=== PATIENT | male | born 1960 | race Caucasian/White ===

== ENCOUNTER 2016-04-11 15:49 | Outpatient (CLI) | payer OTHER | END 2016-04-11 15:50 | disposition home or self-care (01) | DX: E78.5 Hyperlipidemia, unspecified (principal); E11.9 Type 2 diabetes mellitus without complications; C79.31 Secondary malignant neoplasm of brain ==

== ENCOUNTER 2016-07-11 15:57 | Outpatient (CLI) | payer OTHER | END 2016-07-11 15:58 | disposition home or self-care (01) | DX: N18.9 Chronic kidney disease, unspecified (principal); Z12.5 Encounter for screening for malignant neoplasm of prostate; E11.9 Type 2 diabetes mellitus without complications ==

== ENCOUNTER 2016-10-31 09:49 | Outpatient (CLI) | payer OTHER ==
[2016-10-31 10:32] LABS: CREATININE 1.5 mg/dL (0.6-1.2)
== END 2016-10-31 09:50 | disposition home or self-care (01) ==
LOC: LAB 09:49
PROVIDERS: ATTEND Specialist
DX: C79.31 Secondary malignant neoplasm of brain (principal)
CPT/HCPCS: 82565; 84520

== ENCOUNTER 2017-01-31 08:00 | Outpatient (CLI) | payer OTHER ==
[2017-02-02 22:38] LABS: TOTAL VOLUME 24HRS,URINE 2000 mL
[2017-02-03 18:50] LABS: TOTAL PROTEIN 24HR,URINE 3140 mg/24hr (40-150); TOTAL PROTEIN,URINE TIMED 157 mg/dL
== END 2017-02-02 08:01 | disposition home or self-care (01) ==
LOC: LAB.WCP 08:00
PROVIDERS: ATTEND Internal Medicine Hematology & Oncology
DX: C64.2 Malignant neoplasm of left kidney, except renal pelvis (principal)
CPT/HCPCS: 84156

== ENCOUNTER 2017-02-24 07:46 | Outpatient (CLI) | payer OTHER ==
[2017-02-24 13:16] LABS: ALBUMIN 3.7 g/dL (3.2-5.5); ALBUMIN/GLOBULIN RATIO 1.4 (1.0-2.2); ALKALINE PHOSPHATASE 55 IU/L (42-121); ALT ALANINE AMINOTRANSFERASE 17 IU/L (10-60); AST ASPARTATE AMINOTRANSFERASE 21 IU/L (10-42); BILIRUBIN,TOTAL 0.8 mg/dL (0.2-1.0); BUN - BLOOD UREA NITROGEN 20 mg/dL (6-20); CALCIUM 8.7 mg/dL (8.5-10.3); CARBON DIOXIDE - CO2 24 mmol/L (21-32); CHLORIDE 107 mmol/L (101-111); CHOL/HDL RATIO 5.3 (<5.0); CHOLESTEROL 158 mg/dL; CREATININE 1.2 mg/dL (0.6-1.2); GFR - MDRD 62 (>89); GLUCOSE 170 mg/dL (70-100); HB2 TOTAL 14.6 g/dL; HDL CHOLESTEROL 30 mg/dL; HEMOGLOBIN A1C 0.73 g/dL; HEMOGLOBIN A1C % 6.7 % (4.6-6.2); LDL CHOLESTEROL,CALCULATED 88 mg/dL; LDL/HDL RATIO 2.9 (<3.6); SODIUM 136 mmol/L (135-145); TOTAL PROTEIN 6.3 g/dL (6.7-8.2); VLDL CHOLESTEROL 40 mg/dL
== END 2017-02-24 07:47 | disposition home or self-care (01) ==
LOC: LAB.WCP 07:46
PROVIDERS: ATTEND Physician Assistant Medical
DX: E11.9 Type 2 diabetes mellitus without complications (principal)
CPT/HCPCS: 36415; 80053; 80061; 83036

== ENCOUNTER 2017-07-19 09:39 | Outpatient (CLI) | payer OTHER ==
--- NOTE | 2017-07-19 11:13 | XRAY Report ---
AC JOINTS WITH AND WITHOUT WEIGHTS: 07/19/2017 CLINICAL INDICATION: Strain, pain. FINDINGS: Frontal views of the acromioclavicular joints were obtained with and without weights. There is no evidence of AC separation on either side. Minimal degenerative changes are present. No foreign body is seen in the soft tissues. No clavicular fracture is appreciated. IMPRESSION: NO EVIDENCE OF SHOULDER SEPARATION. TD: 07/19/2017 11:04
== END 2017-07-19 09:40 | disposition home or self-care (01) ==
LOC: DI 09:39
PROVIDERS: ATTEND Physician Assistant Medical
DX: S46.911A Strain of unspecified muscle, fascia and tendon at shoulder and upper arm level, right arm, initial encounter (principal)
CPT/HCPCS: 73050

== ENCOUNTER 2017-07-26 08:55 | Outpatient (CLI) | payer OTHER ==
[2017-07-26 13:04] LABS: HB2 TOTAL 14.8 g/dL; HEMOGLOBIN A1C 0.87 g/dL; HEMOGLOBIN A1C % 7.5 % (4.6-6.2)
[2017-07-26 13:24] LABS: CREATININE 1.6 mg/dL (0.6-1.2)
== END 2017-07-26 08:56 ==
LOC: LAB.WCP 08:55
PROVIDERS: ATTEND Physician Assistant Medical
DX: E11.22 Type 2 diabetes mellitus with diabetic chronic kidney disease (principal); N18.9 Chronic kidney disease, unspecified
CPT/HCPCS: 36415; 80048; 83036

== ENCOUNTER 2017-09-21 10:41 | Outpatient (CLI) | payer OTHER ==
[2017-09-21 11:11] LABS: CREATININE,URINE 29.4 mg/dL; PROTEIN/CREATININE RATIO,URINE 1.2 (<=0.2)
[2017-09-21 11:13] LABS: CALCIUM 8.5 mg/dL (8.5-10.3); CREATININE 1.5 mg/dL (0.6-1.2)
== END 2017-09-21 10:42 | disposition home or self-care (01) ==
LOC: LAB 10:41
PROVIDERS: ATTEND Internal Medicine Nephrology
DX: N05.9 Unspecified nephritic syndrome with unspecified morphologic changes (principal); R80.9 Proteinuria, unspecified
CPT/HCPCS: 36415; 80048; 82570; 84156

== ENCOUNTER 2017-11-07 08:00 | Outpatient (CLI) | payer OTHER ==
[2017-11-07 13:15] LABS: BASOPHILS % (AUTO) 0.9 %; EOSINOPHILS # (AUTO) 0.1 10^3/uL (0.0-0.7); HGB - HEMOGLOBIN 12.4 g/dL (14.0-18.0); LYMPHOCYTES # (AUTO) 0.9 10^3/uL (1.5-3.5); MEAN CORPUSCULAR HEMOGLOBIN 29.5 pg (27.0-31.0); MEAN CORPUSCULAR HGB CONC 34.8 g/dL (32.0-36.0); MEAN CORPUSCULAR VOLUME 84.8 fL (80.0-94.0); MEAN PLATELET VOLUME 8.8 fL (7.4-11.4); MONOCYTES # (AUTO) 0.5 10^3/uL (0.0-1.0); MONOCYTES % (AUTO) 9.3 %; NEUTROPHILS # (AUTO) 3.4 10^3/uL (1.5-6.6); NEUTROPHILS % (AUTO) 68.8 %; PLT - PLATELET COUNT 162 10^3/uL (130-450); RED BLOOD COUNT 4.22 10^6/uL (4.70-6.10); RED CELL DISTRIBUTION WIDTH 16.9 % (12.0-15.0); WHITE BLOOD COUNT 4.9 x10^3/uL (4.8-10.8)
[2017-11-07 13:38] LABS: ALBUMIN 3.8 g/dL (3.2-5.5); ALBUMIN/GLOBULIN RATIO 1.4 (1.0-2.2); ALKALINE PHOSPHATASE 51 IU/L (42-121); ALT ALANINE AMINOTRANSFERASE 17 IU/L (10-60); AST ASPARTATE AMINOTRANSFERASE 20 IU/L (10-42); BUN - BLOOD UREA NITROGEN 20 mg/dL (6-20); CARBON DIOXIDE - CO2 26 mmol/L (21-32); CHLORIDE 106 mmol/L (101-111); CHOL/HDL RATIO 5.6 (<5.0); CHOLESTEROL 151 mg/dL; CREATININE 1.4 mg/dL (0.6-1.2); GFR - MDRD 52 (>89); GLUCOSE 222 mg/dL (70-100); HDL CHOLESTEROL 27 mg/dL; LDL CHOLESTEROL,CALCULATED 81 mg/dL; SODIUM 139 mmol/L (135-145); TOTAL PROTEIN 6.5 g/dL (6.7-8.2); VLDL CHOLESTEROL 43 mg/dL
[2017-11-07 13:45] LABS: HEMOGLOBIN A1C 0.62 g/dL; HEMOGLOBIN A1C % 6.5 % (4.6-6.2)
[2017-11-07 13:46] LABS: THYROID STIMULATING HORMONE 1.1 uIU/mL (0.34-5.60)
[2017-11-07 13:52] LABS: FERRITIN 103.7 ng/mL (23.9-336.2)
== END 2017-11-07 08:01 | disposition home or self-care (01) ==
LOC: LAB.WCP 08:00
PROVIDERS: ATTEND Physician Assistant Medical
DX: E78.5 Hyperlipidemia, unspecified (principal); R53.83 Other fatigue; E11.9 Type 2 diabetes mellitus without complications; Z12.5 Encounter for screening for malignant neoplasm of prostate
CPT/HCPCS: 36415; 80053; 80061; 82306; 82607; 82728; 83036; 83721; 84153; 84443; 85025

== ENCOUNTER 2018-03-01 14:42 | Outpatient (CLI) | payer OTHER ==
[2018-03-01 19:18] LABS: CALCIUM 9.3 mg/dL (8.5-10.3); CREATININE 1.7 mg/dL (0.6-1.2)
[2018-03-01 19:30] LABS: HB2 TOTAL 14.6 g/dL; HEMOGLOBIN A1C 0.99 g/dL; HEMOGLOBIN A1C % 8.4 % (4.6-6.2)
== END 2018-03-01 23:59 | disposition home or self-care (01) ==
LOC: LAB.WCP 14:42
PROVIDERS: ATTEND Physician Assistant Medical
DX: N52.9 Male erectile dysfunction, unspecified (principal); E11.9 Type 2 diabetes mellitus without complications
CPT/HCPCS: 36415; 80048; 81599; 83036; 84402; 84403

== ENCOUNTER 2018-04-19 08:10 | Outpatient (CLI) | payer OTHER ==
[2018-04-19 14:31] LABS: CREATININE 1.7 mg/dL (0.6-1.2)
== END 2018-04-19 08:11 | disposition home or self-care (01) ==
LOC: LAB.WCP 08:10
PROVIDERS: ATTEND Specialist
DX: C79.31 Secondary malignant neoplasm of brain (principal)
CPT/HCPCS: 36415; 82565; 84520

== ENCOUNTER 2018-07-17 15:08 | Outpatient (CLI) | payer OTHER | END 2018-07-17 15:09 | disposition home or self-care (01) | LOC: SC 15:08 | PROVIDERS: ATTEND Nurse Practitioner Family | DX: G47.33 Obstructive sleep apnea (adult) (pediatric) (principal); E66.9 Obesity, unspecified; Z68.38 Body mass index [BMI] 38.0-38.9, adult | CPT/HCPCS: 99204; 99212 ==

== ENCOUNTER 2018-07-24 13:21 | Outpatient (CLI) | payer OTHER ==
[2018-07-24 19:06] LABS: CREATININE 1.6 mg/dL (0.6-1.2)
== END 2018-07-24 13:22 | disposition home or self-care (01) ==
LOC: LAB.WCP 13:21
PROVIDERS: ATTEND Specialist
DX: C79.31 Secondary malignant neoplasm of brain (principal)
CPT/HCPCS: 36415; 82565; 84520

== ENCOUNTER 2018-08-29 08:00 | Outpatient (CLI) | payer OTHER | END 2018-08-29 08:01 | disposition home or self-care (01) | LOC: LAB.WCP 08:00 | PROVIDERS: ATTEND Internal Medicine Cardiovascular Disease | DX: I48.91 Unspecified atrial fibrillation (principal) | CPT/HCPCS: 36415; 84443 ==

== ENCOUNTER 2018-10-24 09:12 | Outpatient (CLI) | payer OTHER ==
[2018-10-24 10:32] VITALS: BP 130/80
--- NOTE | 2018-10-24 10:32 | SLEEP CARE CONSULTATION ---
Information from patient questionnaire entered by Shanika Ryan. I have reviewed and concur with the information entered by Shanika Ryan. This document represents the service I personally performed and the decisions made by me, Elif Gordon, RN, MSN, [employer]. History of Present Illness Previous diagnosis: Very Severe, Obstructive Sleep Apnea-Hypopnea Syndrome AHI: 60 Reason for CPAP/BiPAP follow up: three month Equipment type: CPAP Equipment obtained from: [facility] Mask style: Nasal Mask brand: Resmed Backup mask available: Yes Last cushion change: 2 months ago HPI additional information: Review of past visit notes is that the new pressure is comfortable and allowing him to use CPAP nightly. Supplies were updated. CPAP Compliance Data - Data Reviewed with Patient Average duration of nightly device use: 5.5 Compliance rate %: 77 (30 days) Current pressure setting (cmH2O): 11 Average residual AHI: 1.6 Average large leak: 0.2 liters a minute Subjective Missed days of use due to: reports: travel (unexpected travel) Patient concerns: reports: air blowing in eyes (occasionally), other (short nights of use is patient waking to use restroom in middle of night and then unable to go back to sleep due to things on his mind, generally work. ). den ies: aerophagia, mask discomfort, mask leak noise, condensation in mask/hose, nasal congestion, dry mouth, nose, throat, epistaxis Observed to snore while using device: No Current pressure setting perceived as: comfortable On therapy, patient: reports: sleeping better, awakening more refreshed, being more awake and alert during the day, more rested overall. denies: drowsiness while driving Initial [place] Sleepiness Scale score: 5 Current [place] Sleepiness Scale score: 3 Allergies and Home Medications Known drug allergies: Yes (lisinopril) Home medication list reviewed: Yes Allergy and home medication list: Medication List Medication Name (generic/name brand) Strength & Dosage Lovastatin 20mg tab one daily Glipizide 5mg tab one twice daily Carvedilol 25mg tab one twice daily Zolpidem Tartrate 10mg tab one daily at bedtime as needed Hydrochlorothiazide 25mg tab one every morning Losartan Potassium 25mg tab one daily Lantus Solostar 100 unit/ml SQ Solution Inject 70 units daily as needed Sildenafil Citrate 50mg tab as directed Humalog Kwikpen 100 unit/ml SQ Solution As directed on SS as needed Omeprazole DR 20mg cap one daily Allergy List Lisinopril Review of Systems Review of systems same as previous: Yes Physical Exam Blood Pressure: 130/80 Cuff size: long Heart Rate: 66 O2 Saturation: 98 Height: 5 ft 11.75 in Weight (kg): 129.455 kg Body Mass Index: 38.9 BMI Classification: Class 2 Impression and Plan 1. Obstructive Sleep Apnea-Hypopnea Syndrome, very severe, with good treatment compliance and good apnea control. On CPAP therapy, the patient has better sleep quality and is more rested overall. The new pressure and updated supplies have improved CPAP comfort and use. However, he has intermittent insomnia as addressed below affecting compliance. Patient also reminded to change mask cushion regularly to maintain fit and comfort of mask. Patient's apnea severity and rationale for treatment to reduce apnea, improve sleep quality and reduce cardiovascular and cerebrovascular events was reviewed. I also reviewed the benefit of consistent device use of CPAP for hypertension, diabetes, gastric reflux. He has noted benefit to his blood pressure and gerd. 2. Insomnia, waking in middle of night with inability to fall back to sleep about 1 -2 times a week. This occurs after using the restroom and then starts thinking about work needs. He will take off mask and toss and turn until he feels he is disturbing spouse and then leave room to read. Thus he is advised instead to leave room sooner to reduce frustration of trying to go to sleep. He is to then write out concerns that are keeping him awake as a release and then read something relaxing until sleepy. Upon to return to bed if unable to sleep again, he is to repeat process as often as needed to associate bed with sleep. AASM How to Sleep Better given and reviewed. He is also advised to use CPAP while in bed in the event he may fall back to sleep. * Continue CPAP pressure at 11 cmH2O * Implement methods to reduce insomnia. * Notify me if snoring with mask or feeling that the pressure is too much or too little * Attempt to lose weight * Return for follow up in 6 months , or sooner if concerns arise I spent 100% of this 30 minute visit face to face with the patient with greater than 50% of this was spent time counseling the patient and coordination of care.
== END 2018-10-24 09:13 | disposition home or self-care (01) ==
LOC: SC 09:12
PROVIDERS: ATTEND Nurse Practitioner Family
DX: G47.33 Obstructive sleep apnea (adult) (pediatric) (principal); G47.00 Insomnia, unspecified
CPT/HCPCS: 99212; 99214

== ENCOUNTER 2018-12-26 07:44 | Outpatient (CLI) | payer OTHER ==
[2018-12-26 12:31] LABS: BASOPHILS # (AUTO) 0.1 10^3/uL (0.0-0.1); BASOPHILS % (AUTO) 0.9 %; EOSINOPHILS # (AUTO) 0.1 10^3/uL (0.0-0.7); EOSINOPHILS % (AUTO) 2.6 %; HGB - HEMOGLOBIN 14.2 g/dL (14.0-18.0); LYMPHOCYTES # (AUTO) 1.1 10^3/uL (1.5-3.5); LYMPHOCYTES % (AUTO) 20.7 %; MEAN CORPUSCULAR HEMOGLOBIN 28.6 pg (27.0-31.0); MEAN CORPUSCULAR HGB CONC 32.7 g/dL (32.0-36.0); MEAN CORPUSCULAR VOLUME 87.5 fL (80.0-94.0); MEAN PLATELET VOLUME 11.3 fL (7.4-11.4); MONOCYTES # (AUTO) 0.5 10^3/uL (0.0-1.0); NEUTROPHILS # (AUTO) 3.5 10^3/uL (1.5-6.6); NEUTROPHILS % (AUTO) 65.2 %; PLT - PLATELET COUNT 148 10^3/uL (130-450); RED BLOOD COUNT 4.96 10^6/uL (4.70-6.10); RED CELL DISTRIBUTION WIDTH 13.7 % (12.0-15.0); WHITE BLOOD COUNT 5.3 x10^3/uL (4.8-10.8)
[2018-12-26 13:09] LABS: ALBUMIN 4.2 g/dL (3.2-5.5); ALBUMIN/GLOBULIN RATIO 1.7 (1.0-2.2); BILIRUBIN,TOTAL 0.9 mg/dL (0.2-1.0); CALCIUM 9.1 mg/dL (8.5-10.3); CREATININE 1.6 mg/dL (0.6-1.2); TOTAL PROTEIN 6.7 g/dL (6.7-8.2)
== END 2018-12-26 23:59 | disposition home or self-care (01) ==
LOC: LAB.WCP 07:44
PROVIDERS: ATTEND Physician Assistant Medical
DX: I48.91 Unspecified atrial fibrillation (principal)
CPT/HCPCS: 36415; 80053; 85025

== ENCOUNTER 2019-04-19 07:45 | Outpatient (CLI) | payer OTHER ==
[2019-04-19 13:44] LABS: BUN - BLOOD UREA NITROGEN 35 mg/dL (6-20); CALCIUM 9.3 mg/dL (8.5-10.3); CARBON DIOXIDE - CO2 27 mmol/L (21-32); CHLORIDE 101 mmol/L (101-111); CHOL/HDL RATIO 5.7 (<5.0); CHOLESTEROL 187 mg/dL; CREATININE 1.5 mg/dL (0.6-1.2); GFR - MDRD 48 (>89); GLUCOSE 270 mg/dL (70-100); HDL CHOLESTEROL 33 mg/dL; LDL CHOLESTEROL,CALCULATED 111 mg/dL; LDL/HDL RATIO 3.4 (<3.6); SODIUM 136 mmol/L (135-145); VLDL CHOLESTEROL 43 mg/dL
[2019-04-19 13:54] LABS: HB2 TOTAL 15.3 g/dL; HEMOGLOBIN A1C 0.89 g/dL; HEMOGLOBIN A1C % 7.5 % (4.6-6.2)
== END 2019-04-19 23:59 | disposition home or self-care (01) ==
LOC: LAB.WCP 07:45
PROVIDERS: ATTEND Physician Assistant Medical
DX: E11.9 Type 2 diabetes mellitus without complications (principal)
CPT/HCPCS: 36415; 80048; 80061; 83036; 83721

== ENCOUNTER 2019-07-01 16:51 | Outpatient (CLI) | payer OTHER ==
--- NOTE | 2019-07-01 15:32 | SLEEP CARE CONSULTATION ---
Information from patient questionnaire entered by Rosie Laura. I have reviewed and concur with the information entered by Rosie Laura. This document represents the service I personally performed and the decisions made by me, Elif Gordon, RN, MSN, ENTERTAINMENT MANAGER. History of Present Illness Service Date and Time: 07/01/2019 1500 Previous diagnosis: Very Severe, Obstructive Sleep Apnea-Hypopnea Syndrome AHI: 60.4 Reason for follow up: six month Equipment type: CPAP Equipment obtained from: [facility] (nothing for about 6 months /) Mask style: Nasal Backup mask available: Yes (nasal pillows ) Last cushion change: not since set up. uses So Clean device Type of Sleep Study: Polysomnography CPAP Compliance Data - Data Reviewed with Patient Average duration of nightly device use: 5h 44m Compliance rate %: 86 Current pressure setting (cmH2O): 11 Average residual AHI: 0.7 Average large leak: minimal Subjective Patient concerns: denies: aerophagia, mask discomfort, air blowing in eyes, mask leak noise, condensation in mask/hose, nasal congestion, dry mouth, nose, throat, epistaxis Observed to snore while using device: No Current pressure setting perceived as: comfortable On therapy, patient: reports: sleeping better, awakening more refreshed, being more awake and alert during the day, more rested overall, other. denies: drowsiness while driving Initial [place] Sleepiness Scale score: 5 Allergies and Home Medications Home medication list reviewed: Yes (added eliquist for atrial fibrillation) Review of Systems Review of systems same as previous: No (diagnosed with atrial fibrillation) Physical Exam Height: 5 ft 11 in Weight: 285 lb (home weight - walking 4 times a week) Body Mass Index: 39.7 BMI Classification: Obese Impression and Plan 1. Obstructive Sleep Apnea-Hypopnea Syndrome, very severe, with good treatment compliance and good apnea control. On CPAP therapy, the patient has better sleep quality and is more rested overall. Patient very pleased with benefit of his CPAP treatment. Since patient is using a CPAP cleaning device, he was advised to Check the FDA recent warning on CPAP boom master to see if he needs to address. Since he has not obtained supplies since our last visit 6 months ago, I advised patient to contact his supply company through [employer] at the appropriate number. If unable to get supplies, he is to contact this office. I reviewed verbally the usual supply replacement schedule. Patient has been trying to lose weight. Currently patients BMI is 39.7 obesity class . Obesity increases the risk of apnea, CPAP pressure requirements and overall health risks especially cardiovascular and diabetes. Thus patient is advised to continue to lose weight. Weight loss can be done with reducing portion size, reducing refined foods and balancing content with vegetables, fruit and protein. In addition tracking food intake will allow awareness of how to modify diet to achieve weight loss goals. Also eating more slowly will allow more awareness of food intake and enjoyment of food while assisting patient to modify intake at each meal. A diet consultation can be helpful in achieving optimal weight loss goals. Patients spouse is a core carrier. Symptoms to report for additional pressure adjustment discussed if loses significant weight. Patient is comfortable with current pressure and does not want to change to an autoCPAP at this time to adjust for future weight loss. Patient's apnea severity and rationale for treatment to reduce apnea, improve sleep quality and reduce cardiovascular and cerebrovascular events was reviewed. I also reviewed the benefit of consistent device use of CPAP for his arrhythmia. Since he is averaging about 5 hours and 44 minutes of sleep nightly, I reviewed that most people need about 7-9 hours of sleep. However, some people only require about 6 hours. It seems he is well rested with about 6 hours or a little more if can sleep longer. I cautioned him not to get less than 5 hours of sleep consistently as insufficient sleep can increase health risks. * Continue CPAP pressure at 11 cmH2O * Notify me if snoring with mask or feeling that the pressure is too much or too little * Attempt to lose weight * Call [facility] for supplies * Call this office if any problems using CPAP * Return for follow up in 1 year , or sooner if concerns arise Visit Type: Telehealth Phone (to minimize risk of Covid 19 exposure) Patient Location: Home Location of Provider: Home Patient agrees and consents to this telehealth visit type: Yes Patient agrees to have their insurance billed: Yes Time Spent with Patient (minutes): 19 Provider Statement: I spent 100% of the Telehealth Phone Call with the patient with greater than 50% spent counseling the patient and coordination of care.
== END 2019-07-01 16:52 | disposition home or self-care (01) ==
LOC: SC 16:51
PROVIDERS: ATTEND Nurse Practitioner Family
DX: G47.33 Obstructive sleep apnea (adult) (pediatric) (principal); E66.9 Obesity, unspecified; Z68.39 Body mass index [BMI] 39.0-39.9, adult

== ENCOUNTER 2019-07-17 09:42 | Outpatient (CLI) | payer OTHER ==
[2019-07-17 13:45] LABS: CREATININE,URINE 128.9 mg/dL; MICROALBUM/CREATININE RATIO,UR 244.4 ug/mg (<30.0); MICROALBUMIN,URINE 31.5 mg/dL (0-300.0)
[2019-07-17 14:03] LABS: HB2 TOTAL 14.6 g/dL; HEMOGLOBIN A1C 0.78 g/dL
[2019-07-17 14:04] LABS: ALBUMIN 4.3 g/dL (3.2-5.5); ALBUMIN/GLOBULIN RATIO 1.6 (1.0-2.2); ALKALINE PHOSPHATASE 54 IU/L (42-121); ALT ALANINE AMINOTRANSFERASE 26 IU/L (10-60); AST ASPARTATE AMINOTRANSFERASE 24 IU/L (10-42); BILIRUBIN,TOTAL 1.4 mg/dL (0.2-1.0); BUN - BLOOD UREA NITROGEN 32 mg/dL (6-20); CARBON DIOXIDE - CO2 24 mmol/L (21-32); CHLORIDE 105 mmol/L (101-111); CHOL/HDL RATIO 4.8 (<5.0); CHOLESTEROL 162 mg/dL; CREATININE 1.5 mg/dL (0.6-1.2); GLUCOSE 124 mg/dL (70-100); HDL CHOLESTEROL 34 mg/dL; LDL CHOLESTEROL,CALCULATED 97 mg/dL; LDL/HDL RATIO 2.9 (<3.6); SODIUM 138 mmol/L (135-145); VLDL CHOLESTEROL 31 mg/dL
== END 2019-07-17 23:59 | disposition home or self-care (01) ==
LOC: LAB.WCP 09:42
PROVIDERS: ATTEND Physician Assistant Medical
DX: E11.9 Type 2 diabetes mellitus without complications (principal); Z12.5 Encounter for screening for malignant neoplasm of prostate; C79.31 Secondary malignant neoplasm of brain
CPT/HCPCS: 36415; 80053; 80061; 82043; 82570; 83036; 83721; 84153; 84443

== ENCOUNTER 2020-02-11 08:17 | Outpatient (CLI) | payer OTHER | END 2020-02-11 08:18 | disposition home or self-care (01) | LOC: LAB.N 08:17 | DX: C79.31 Secondary malignant neoplasm of brain (principal) | CPT/HCPCS: 36415; 80048; 83036; 84520 ==

== ENCOUNTER 2020-08-11 09:33 | Outpatient (CLI) | payer OTHER ==
--- NOTE | 2020-08-11 09:52 | SLEEP CARE CONSULTATION ---
Information from patient questionnaire entered by Shanika Ryan. I have reviewed and concur with the information entered by Shanika Ryan. This document represents the service I personally performed and the decisions made by , Kellen Dominguez ARNP. History of Present Illness Service Date and Time: 08/11/2020 0933 Previous diagnosis: Very Severe, Obstructive Sleep Apnea-Hypopnea Syndrome AHI: 60.4 (in 2015) Reason for follow up: annual (last seen 06/2019) Equipment type: CPAP Equipment obtained from: [facility] (having difficulty with getting supplies, ?paying full alba) Mask style: Nasal (over the noase) Backup mask available: Yes (old mask) Last cushion change: last year Prior sleep studies: Yes Year and Where: 2015 - [facility]; 1999 - [facility] Type of Sleep Study: Polysomnography HPI additional information: MARIANNE CAVAZOS was diagnosed to have very severe, AHI 60.4, obstructive sleep apnea-hypopnea syndrome and returns via Telehealth visit today for CPAP therapy annual follow-up. CPAP Compliance Data - Data Reviewed with Patient Average duration of nightly device use: 5 hr 55 min Compliance rate %: 94 (180 days) Current pressure setting (cmH2O): 11 Humidity settin Average residual AHI: 1.0 Subjective Patient concerns: denies: aerophagia, mask discomfort, air blowing in eyes, mask leak noise, condensation in mask/hose, nasal congestion, dry mouth, nose, throat, epistaxis, other Observed to snore while using device: No Current pressure setting perceived as: comfortable On therapy, patient: reports: sleeping better, awakening more refreshed, being more awake and alert during the day, more rested overall. denies: drowsiness while driving Initial [place] Sleepiness Scale score: 5 (in 2014) Current [place] Sleepiness Scale score: 4 Allergies and Home Medications Home medication list reviewed: Yes (Eliquis, carvedilol) Review of Systems Review of systems same as previous: No (Atrial fibrillation) Physical Exam Vital signs obtained and entered by: Telehealth vist to reduce exposure during covid pandemic Height: 5 ft 11 in Impression and Plan 1. Obstructive Sleep Apnea-Hypopnea Syndrome, very severe, with good treatment compliance and good apnea control. On CPAP therapy, the patient has better sleep quality and is more rested overall. Patient is having difficulty getting supplies from [facility]. He states they told him he does not qualify for automatic supplies due to his insurance. He is in need of a new water chamber and gasket and has not been able to change his mask in the last year. I will make a prescription to update his supplies and added note about the water chamber. He states he thinks they are charging him full alba for supplies. He states his weight is stable around 292 pounds. 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 He is also watching what he eats but has not been able to lose weight. I encouraged him to continue to try to lose weight and consult with his on the best way to do this with his diet. He voiced understanding and agreement with this plan of care. Patient's apnea severity and rationale for treatment to reduce apnea, improve sleep quality and reduce cardiovascular and cerebrovascular events was reviewed. I also reviewed the benefit of consistent device use of CPAP for arrhythmias. * Continue auto CPAP pressure at 11 cmH2O * Notify me if snoring with mask or feeling that the pressure is too much or too little * Continue to try to lose weight * Call this office if any problems using CPAP * Return for follow up in 1 year, or sooner if concerns arise Counseling Topics: Spare mask, Weight loss health impact Visit Type: Telehealth Video Video Type: VSee Patient Location: Work Location of Provider: Office Patient agrees and consents to this telehealth visit type: Yes Provider Statement: I spent 100% of the Telehealth Video Call with the patient with greater than 50% spent counseling the patient and coordination of care.
== END 2020-08-11 09:34 | disposition home or self-care (01) ==
LOC: SC 09:33
PROVIDERS: ATTEND Nurse Practitioner Family
DX: G47.33 Obstructive sleep apnea (adult) (pediatric) (principal)

== ENCOUNTER 2020-09-01 08:00 | Outpatient (CLI) | payer OTHER ==
[2020-09-01 18:25] LABS: CALCIUM 9.2 mg/dL (8.5-10.3); CREATININE 1.6 mg/dL (0.6-1.2); POTASSIUM 3.7 mmol/L (3.5-5.0)
[2020-09-01 20:57] LABS: ESTIMATED AVERAGE GLUCOSE 206 mg/dL (70-100); HEMOGLOBIN A1c% 8.8 % (4.27-6.07)
== END 2020-09-01 23:59 | disposition home or self-care (01) ==
LOC: LAB.WCP 08:00
PROVIDERS: ATTEND Physician Assistant Medical
DX: E11.9 Type 2 diabetes mellitus without complications (principal)
CPT/HCPCS: 36415; 80048; 83036

== ENCOUNTER 2020-12-01 08:00 | Outpatient (CLI) | payer OTHER ==
[2020-12-01 12:24] LABS: ALBUMIN/GLOBULIN RATIO 1.4 (1.0-2.2); ALKALINE PHOSPHATASE 59 IU/L (42-121); ALT ALANINE AMINOTRANSFERASE 25 IU/L (10-60); AST ASPARTATE AMINOTRANSFERASE 19 IU/L (10-42); BILIRUBIN,TOTAL 1.1 mg/dL (0.2-1.0); BUN - BLOOD UREA NITROGEN 35 mg/dL (6-20); CALCIUM 9.2 mg/dL (8.5-10.3); CARBON DIOXIDE - CO2 26 mmol/L (21-32); CHLORIDE 101 mmol/L (101-111); CHOL/HDL RATIO 5.7 (<5.0); CHOLESTEROL 172 mg/dL; CREATININE 1.5 mg/dL (0.6-1.2); GFR - MDRD 48 (>89); GLUCOSE 186 mg/dL (70-100); HDL CHOLESTEROL 30 mg/dL; LDL CHOLESTEROL,CALCULATED 106 mg/dL; LDL/HDL RATIO 3.5 (<3.6); POTASSIUM 3.7 mmol/L (3.5-5.0); SODIUM 137 mmol/L (135-145); TOTAL PROTEIN 6.8 g/dL (6.7-8.2); TRIGLYCERIDES 180 mg/dL; VLDL CHOLESTEROL 36 mg/dL
[2020-12-01 12:30] LABS: ESTIMATED AVERAGE GLUCOSE 183 mg/dL (70-100)
[2020-12-01 12:34] LABS: THYROID STIMULATING HORMONE 0.91 uIU/mL (0.34-5.60)
[2020-12-01 12:35] LABS: CREATININE,URINE 67.9 mg/dL; MICROALBUM/CREATININE RATIO,UR 368.2 ug/mg (<30.0)
== END 2020-12-01 23:59 | disposition home or self-care (01) ==
LOC: LAB.WCP 08:00
PROVIDERS: ATTEND Physician Assistant Medical
DX: E11.9 Type 2 diabetes mellitus without complications (principal); Z12.5 Encounter for screening for malignant neoplasm of prostate
CPT/HCPCS: 36415; 80053; 80061; 82043; 82570; 83036; 83721; 84153; 84443

== ENCOUNTER 2021-04-09 10:13 | Outpatient (CLI) | payer OTHER ==
[2021-04-09 10:36] LABS: CREATININE 1.8 mg/dL (0.6-1.2)
== END 2021-04-09 10:14 | disposition home or self-care (01) ==
LOC: LAB 10:13
PROVIDERS: ATTEND Specialist
DX: C79.31 Secondary malignant neoplasm of brain (principal)
CPT/HCPCS: 36415; 82565; 84520

== ENCOUNTER 2022-05-05 08:58 | Outpatient (CLI) | payer OTHER ==
[2022-05-05 12:56] LABS: CALCIUM 9.7 mg/dL (8.5-10.3); CREATININE 1.6 mg/dL (0.6-1.2); POTASSIUM 3.8 mmol/L (3.5-5.0)
[2022-05-05 13:20] LABS: ESTIMATED AVERAGE GLUCOSE 177 mg/dL (70-100); HEMOGLOBIN A1c% 7.8 % (4.27-6.07)
== END 2022-05-05 08:59 | disposition home or self-care (01) ==
LOC: LAB.N 08:58
PROVIDERS: ATTEND Physician Assistant Medical
DX: E11.9 Type 2 diabetes mellitus without complications (principal); Z12.5 Encounter for screening for malignant neoplasm of prostate
CPT/HCPCS: 36415; 80048; 83036; 84153

== ENCOUNTER 2022-08-22 10:51 | Outpatient (CLI) | payer OTHER ==
[2022-08-22 17:58] LABS: ALBUMIN 3.9 g/dL (3.2-5.5); ALBUMIN/GLOBULIN RATIO 1.3 (1.0-2.2); BILIRUBIN,TOTAL 0.8 mg/dL (0.2-1.0); CALCIUM 9.4 mg/dL (8.5-10.3); CREATININE 1.7 mg/dL (0.6-1.2); POTASSIUM 3.5 mmol/L (3.5-5.0)
== END 2022-08-22 10:52 | disposition home or self-care (01) ==
LOC: LAB.N 10:51
PROVIDERS: ATTEND Internal Medicine Cardiovascular Disease
DX: I48.0 Paroxysmal atrial fibrillation (principal)
CPT/HCPCS: 36415; 80053

== ENCOUNTER 2023-01-17 10:10 | Outpatient (CLI) | payer OTHER ==
[2023-01-17 12:22] LABS: BASOPHILS # (AUTO) 0.1 10^3/uL (0.0-0.1); BASOPHILS % (AUTO) 0.7 %; EOSINOPHILS # (AUTO) 0.2 10^3/uL (0.0-0.7); HGB - HEMOGLOBIN 14.4 g/dL (14.0-18.0); LYMPHOCYTES # (AUTO) 1.2 10^3/uL (1.5-3.5); LYMPHOCYTES % (AUTO) 17.8 %; MEAN CORPUSCULAR HEMOGLOBIN 29.1 pg (27.0-31.0); MEAN CORPUSCULAR HGB CONC 33.5 g/dL (32.0-36.0); MEAN CORPUSCULAR VOLUME 86.9 fL (80.0-94.0); MEAN PLATELET VOLUME 11.2 fL (7.4-11.4); MONOCYTES # (AUTO) 0.7 10^3/uL (0.0-1.0); MONOCYTES % (AUTO) 9.7 %; NEUTROPHILS # (AUTO) 4.8 10^3/uL (1.5-6.6); NEUTROPHILS % (AUTO) 68.4 %; PLT - PLATELET COUNT 164 10^3/uL (130-450); RED BLOOD COUNT 4.95 10^6/uL (4.70-6.10); RED CELL DISTRIBUTION WIDTH 13.3 % (12.0-15.0)
[2023-01-17 12:30] LABS: ESTIMATED AVERAGE GLUCOSE 192 mg/dL (70-100); HEMOGLOBIN A1c% 8.3 % (4.27-6.07)
[2023-01-17 12:48] LABS: ALBUMIN 4.3 g/dL (3.2-5.5); ALBUMIN/GLOBULIN RATIO 1.7 (1.0-2.2); ALKALINE PHOSPHATASE 71 IU/L (42-121); ALT ALANINE AMINOTRANSFERASE 33 IU/L (10-60); AST ASPARTATE AMINOTRANSFERASE 25 IU/L (10-42); BILIRUBIN,TOTAL 0.9 mg/dL (0.2-1.0); BUN - BLOOD UREA NITROGEN 32 mg/dL (6-20); CALCIUM 9.6 mg/dL (8.5-10.3); CARBON DIOXIDE - CO2 28 mmol/L (21-32); CHLORIDE 102 mmol/L (101-111); CHOL/HDL RATIO 5.4 (<5.0); CHOLESTEROL 166 mg/dL; CREATININE 1.6 mg/dL (0.6-1.3); GFR - MDRD 44 (>89); GLUCOSE 179 mg/dL (74-104); HDL CHOLESTEROL 31 mg/dL; LDL CHOLESTEROL,CALCULATED 87 mg/dL; LDL/HDL RATIO 2.8 (<3.6); POTASSIUM 3.7 mmol/L (3.5-4.5); SODIUM 136 mmol/L (135-145); TOTAL PROTEIN 6.8 g/dL (6.4-8.9); TRIGLYCERIDES 239 mg/dL (48-352); VLDL CHOLESTEROL 48 mg/dL
[2023-01-17 12:50] LABS: THYROID STIMULATING HORMONE 1.13 uIU/mL (0.34-5.60)
== END 2023-01-17 10:11 | disposition home or self-care (01) ==
LOC: LAB.N 10:10
PROVIDERS: ATTEND Physician Assistant Medical
DX: E11.9 Type 2 diabetes mellitus without complications (principal); R53.83 Other fatigue
CPT/HCPCS: 36415; 80053; 80061; 82306; 82607; 83036; 83721; 84443; 85025

== ENCOUNTER 2023-05-23 09:51 | Outpatient (CLI) | payer OTHER ==
[2023-05-23 12:23] LABS: CALCIUM 10.3 mg/dL (8.5-10.3); CREATININE 1.7 mg/dL (0.6-1.3); POTASSIUM 3.7 mmol/L (3.5-4.5)
[2023-05-23 13:46] LABS: ESTIMATED AVERAGE GLUCOSE 183 mg/dL (70-100)
== END 2023-05-23 09:52 | disposition home or self-care (01) ==
LOC: LAB.N 09:51
PROVIDERS: ATTEND Physician Assistant Medical
DX: E11.9 Type 2 diabetes mellitus without complications (principal); Z12.5 Encounter for screening for malignant neoplasm of prostate
CPT/HCPCS: 36415; 80048; 83036; 84153

== ENCOUNTER 2023-09-06 07:24 | Outpatient (CLI) | payer OTHER ==
[2023-09-06 13:04] LABS: ALBUMIN 4.2 g/dL (3.2-5.5); ALBUMIN/GLOBULIN RATIO 1.4 (1.0-2.2); ALKALINE PHOSPHATASE 76 IU/L (42-121); ALT ALANINE AMINOTRANSFERASE 16 IU/L (10-60); AST ASPARTATE AMINOTRANSFERASE 16 IU/L (10-42); BILIRUBIN,TOTAL 0.9 mg/dL (0.2-1.0); BUN - BLOOD UREA NITROGEN 34 mg/dL (6-20); CALCIUM 9.4 mg/dL (8.5-10.3); CARBON DIOXIDE - CO2 26 mmol/L (21-32); CHLORIDE 104 mmol/L (101-111); CHOL/HDL RATIO 4.9 (<5.0); CHOLESTEROL 165 mg/dL; CREATININE 1.9 mg/dL (0.6-1.3); GFR - MDRD 36 (>89); GLUCOSE 269 mg/dL (74-104); HDL CHOLESTEROL 34 mg/dL; LDL CHOLESTEROL,CALCULATED 88 mg/dL; LDL/HDL RATIO 2.6 (<3.6); SODIUM 137 mmol/L (135-145); TOTAL PROTEIN 7.1 g/dL (6.4-8.9); TRIGLYCERIDES 217 mg/dL; VLDL CHOLESTEROL 43 mg/dL
[2023-09-06 13:22] LABS: ESTIMATED AVERAGE GLUCOSE 180 mg/dL (70-100); HEMOGLOBIN A1c% 7.9 % (4.27-6.07)
== END 2023-09-06 07:25 | disposition home or self-care (01) ==
LOC: LAB.N 07:24
PROVIDERS: ATTEND Physician Assistant Medical
DX: E11.9 Type 2 diabetes mellitus without complications (principal)
CPT/HCPCS: 36415; 80053; 80061; 83036; 83721